=== PATIENT | female | born 1980 | race Caucasian/White ===

== ENCOUNTER 2020-10-19 08:15 | Emergency (ER) | payer OTHER ==
[2020-10-19 08:44] VITALS: TEMP 97; BMI 30.7
[2020-10-19 09:14] LABS: HCG,QUALITATIVE URINE Negative
[2020-10-19 09:34] LABS: EPI CELLS 7 /uL (0-25.1); HYALINE CASTS 1 /uL (0-3.1); URINE APPEARANCE CLOUDY; URINE BACTERIA 122 /uL (0-1359); URINE BILIRUBIN NEGATIVE (NEGATIVE); URINE COLOR YELLOW; URINE GLUCOSE (UA) NEGATIVE (NEGATIVE); URINE KETONE NEGATIVE (NEGATIVE); URINE LEUK ESTERASE 2+ (NEGATIVE); URINE NITRITE NEGATIVE (NEGATIVE); URINE PROTEIN NEGATIVE (NEGATIVE); URINE UROBILINOGEN 0.2 mg/dL (0.2-1.0); URINE WBC 407 /uL (0-25.8)
[2020-10-19 09:35] LABS: URINE RBC 59.3 /uL (0-23.9); YEAST NON SEEN (NEGATIVE)
[2020-10-19 10:06] VITALS: BP 111/66; PULSE 84
== END 2020-10-19 10:05 | disposition home or self-care (01) ==
LOC: JER 08:15
DX: N30.01 Acute cystitis with hematuria (principal)
CPT/HCPCS: 81003; 84703; 87086; 87186; 99284-25

== ENCOUNTER 2020-12-14 23:29 | Emergency (ER) | payer OTHER ==
[2020-12-14 23:41] VITALS: TEMP 98.3; BMI 31.1
[2020-12-15 00:31] LABS: BASO % 0.7 % (0-2.0); EOS % 3.9 % (0-4.5); HEMATOCRIT 40.1 % (32.4-45.2); HEMOGLOBIN 13.2 GM/dL (10.7-15.3); LYMPH % 23.5 % (8-40); MEAN CELL VOLUME 88.1 fl (80-96); MEAN PLT VOLUME 7.5 fl (7.5-11.1); MONO % 5.4 % (3.8-10.2); NEUT % 66.5 % (42.8-82.8); PLATELET COUNT 306 K/MM3 (134-434); RBC 4.55 M/mm3 (3.60-5.2); RDW 13.2 % (11.6-15.6); WHITE BLOOD COUNT 8.4 K/mm3 (4.0-10.0)
[2020-12-15 00:44] LABS: EPI CELLS 17 /uL (0-25.1); HYALINE CASTS 1 /uL (0-3.1); PH,URINE 6.5 (5.0-8.0); URINE APPEARANCE CLOUDY; URINE BACTERIA 935 /uL (0-1359); URINE BILIRUBIN NEGATIVE (NEGATIVE); URINE COLOR ORANGE; URINE GLUCOSE (UA) NEGATIVE (NEGATIVE); URINE KETONE NEGATIVE (NEGATIVE); URINE LEUK ESTERASE NEGATIVE (NEGATIVE); URINE NITRITE NEGATIVE (NEGATIVE); URINE PROTEIN 1+ (NEGATIVE); URINE RBC 1838 /uL (0-23.9); URINE WBC 25 /uL (0-25.8)
[2020-12-15 00:49] LABS: POTASSIUM 4.1 mmol/L (3.5-5.1)
[2020-12-15 00:51] LABS: CALCIUM 8.8 mg/dL (8.5-10.1)
[2020-12-15 00:53] LABS: ALBUMIN 3.6 g/dl (3.4-5.0); BLOOD UREA NITROGEN 12.5 mg/dL (7-18)
[2020-12-15 00:55] LABS: CREATININE 0.9 mg/dL (0.55-1.3)
[2020-12-15 00:56] LABS: BILIRUBIN,TOTAL 0.4 mg/dL (0.2-1); TOT PROT 7.3 g/dl (6.4-8.2)
[2020-12-15 03:27] VITALS: BP 110/73; PULSE 88
== END 2020-12-15 03:27 | disposition home or self-care (01) ==
LOC: JER 23:29
DX: O20.0 Threatened abortion (principal)
CPT/HCPCS: 36415; 80053; 81003; 84702; 85025; 86850; 86900; 86901; 87086; 99284-25

== ENCOUNTER 2021-03-02 12:23 | Emergency (ER) | payer OTHER ==
[2021-03-02 12:34] VITALS: BP 99/63; PULSE 80; TEMP 98.3; BMI 32.1
[2021-03-02 13:30] LABS: EPI CELLS >36 /uL (0-25.1); HCG,QUALITATIVE URINE Negative; HYALINE CASTS 0 /uL (0-3.1); PH,URINE 6.5 (5.0-8.0); URINE APPEARANCE CLEAR; URINE BACTERIA 227 /uL (0-1359); URINE BILIRUBIN NEGATIVE (NEGATIVE); URINE COLOR RED; URINE GLUCOSE (UA) NEGATIVE (NEGATIVE); URINE KETONE NEGATIVE (NEGATIVE); URINE LEUK ESTERASE 1+ (NEGATIVE); URINE NITRITE NEGATIVE (NEGATIVE); URINE PROTEIN TRACE (NEGATIVE); URINE UROBILINOGEN 0.2 mg/dL (0.2-1.0); URINE WBC 85 /uL (0-25.8)
[2021-03-02 14:51] LABS: URINE RBC 262 /uL (0-23.9)
== END 2021-03-02 13:53 | disposition home or self-care (01) ==
LOC: JERFT 12:23
DX: N30.01 Acute cystitis with hematuria (principal)
CPT/HCPCS: 81003; 84703; 87086; 99283-25

== ENCOUNTER 2021-04-02 10:39 | Emergency (ER) | payer OTHER ==
[2021-04-02 10:58] VITALS: BP 100/60; PULSE 89; TEMP 98.1; BMI 27.1
[2021-04-02 12:01] LABS: HCG,QUALITATIVE URINE Negative
[2021-04-02 12:04] LABS: EPI CELLS 3 /uL (0-25.1); HYALINE CASTS 0 /uL (0-3.1); URINE APPEARANCE CLEAR; URINE BACTERIA 119 /uL (0-1359); URINE BILIRUBIN NEGATIVE (NEGATIVE); URINE COLOR YELLOW; URINE GLUCOSE (UA) NEGATIVE (NEGATIVE); URINE KETONE NEGATIVE (NEGATIVE); URINE LEUK ESTERASE 3+ (NEGATIVE); URINE NITRITE NEGATIVE (NEGATIVE); URINE PROTEIN NEGATIVE (NEGATIVE); URINE RBC 62 /uL (0-23.9); URINE UROBILINOGEN 0.2 mg/dL (0.2-1.0); URINE WBC 183 /uL (0-25.8)
== END 2021-04-02 12:16 | disposition home or self-care (01) ==
LOC: JERFT 10:39
DX: N30.01 Acute cystitis with hematuria (principal)
CPT/HCPCS: 81003; 84703; 87086; 87186; 99283-25

== ENCOUNTER 2021-05-17 12:41 | Emergency (ER) | payer OTHER ==
[2021-05-17 12:49] VITALS: BP 100/67; PULSE 70; TEMP 98.2; BMI 30.9
[2021-05-17 15:00] LABS: EPI CELLS 4 /uL (0-25.1); HYALINE CASTS 0 /uL (0-3.1); URINE APPEARANCE CLEAR; URINE BACTERIA 86 /uL (0-1359); URINE BILIRUBIN NEGATIVE (NEGATIVE); URINE COLOR YELLOW; URINE GLUCOSE (UA) NEGATIVE (NEGATIVE); URINE KETONE NEGATIVE (NEGATIVE); URINE LEUK ESTERASE NEGATIVE (NEGATIVE); URINE NITRITE NEGATIVE (NEGATIVE); URINE PROTEIN NEGATIVE (NEGATIVE); URINE RBC 11 /uL (0-23.9); URINE UROBILINOGEN 0.2 mg/dL (0.2-1.0); URINE WBC 5 /uL (0-25.8)
[2021-05-17] MEDS ORDERED: DOXYCYCLINE HYCLATE 100 MG CAPSULE PO ONE ×2 (15:14→15:17)
[2021-05-17] MEDS ORDERED: IBUPROFEN 600 MG TABLET (FP) PO ONE ×2 (15:17→15:19)
== END 2021-05-17 15:24 | disposition home or self-care (01) ==
LOC: JERFT 12:41
DX: N75.8 Other diseases of Bartholin's gland (principal)
CPT/HCPCS: 36415; 81003; 84703; 87491; 87591; 99283-25

== ENCOUNTER 2022-04-23 11:28 | Emergency (ER) | payer OTHER ==
[2022-04-23 12:10] VITALS: BP 96/62; PULSE 84; TEMP 98.1; BMI 34.2
[2022-04-23] MEDS ORDERED: PHENAZOPYRIDINE HCL 100 MG TABLET (FP) ONE (12:51)
[2022-04-23] MEDS ORDERED: PHENAZOPYRIDINE HCL 100 MG TABLET (FP) PO ONE (12:51)
[2022-04-23 13:19] LABS: HCG,QUALITATIVE URINE Negative; URINE APPEARANCE CLEAR; URINE BILIRUBIN NEGATIVE (NEGATIVE); URINE COLOR RED; URINE GLUCOSE (UA) NEGATIVE (NEGATIVE); URINE KETONE NEGATIVE (NEGATIVE); URINE LEUK ESTERASE 2+ (NEGATIVE); URINE NITRITE NEGATIVE (NEGATIVE); URINE PROTEIN 1+ (NEGATIVE); URINE UROBILINOGEN 0.2 mg/dL (0.2-1.0)
[2022-04-23 13:21] LABS: URINE RBC 19.9 /uL (0-23.9)
[2022-04-23 13:22] LABS: EPI CELLS 3.7 /uL (0-25.1); HYALINE CASTS 0.62 /uL (0-3.1); URINE BACTERIA 317.9 /uL (0-1359); URINE WBC 333.4 /uL (0-25.8); YEAST NEGATIVE (NEGATIVE)
== END 2022-04-23 14:09 | disposition home or self-care (01) ==
LOC: JER 11:28
DX: R30.0 Dysuria (principal); N39.0 Urinary tract infection, site not specified
CPT/HCPCS: 81003; 84703; 87086; 87186; 99283-25

== ENCOUNTER 2023-01-01 04:47 | Emergency (ER) | payer OTHER ==
[2023-01-01 05:06] VITALS: BP 102/62; PULSE 80; RESP 18; TEMP 97.7
[2023-01-01 06:15] LABS: EPI CELLS 6 /uL (0-25.1); HCG,QUALITATIVE URINE Negative; HYALINE CASTS 2 /uL (0-3.1); URINE APPEARANCE CLEAR; URINE BACTERIA 419 /uL (0-1359); URINE BILIRUBIN NEGATIVE (NEGATIVE); URINE COLOR YELLOW; URINE GLUCOSE (UA) NEGATIVE (NEGATIVE); URINE KETONE NEGATIVE (NEGATIVE); URINE LEUK ESTERASE 2+ (NEGATIVE); URINE NITRITE NEGATIVE (NEGATIVE); URINE PROTEIN NEGATIVE (NEGATIVE); URINE UROBILINOGEN 0.2 mg/dL (0.2-1.0); URINE WBC 231 /uL (0-25.8)
[2023-01-01] MEDS ORDERED: CEPHALEXIN MONOHYDRATE 500 MG CAPSULE (UD) PO ONE (06:35)
[2023-01-01] MEDS ORDERED: CEPHALEXIN MONOHYDRATE 500 MG CAPSULE (UD) ONE (06:36)
== END 2023-01-01 06:37 | disposition home or self-care (01) ==
LOC: JER 04:47
DX: N30.00 Acute cystitis without hematuria (principal)
CPT/HCPCS: 36415; 81003; 84703; 87086; 87186; 87491; 87591; 99283-25

== ENCOUNTER 2023-09-27 16:08 | Emergency (ER) | payer OTHER ==
[2023-09-27 16:28] VITALS: BP 109/70; PULSE 78; RESP 17; TEMP 98.5; BMI 30.9
[2023-09-27 17:18] LABS: EPI CELLS 3.3 /uL (0-25.1); HYALINE CASTS 0.12 /uL (0-3.1); URINE APPEARANCE CLEAR; URINE BACTERIA 1243.1 /uL (0-1359); URINE BILIRUBIN NEGATIVE (NEGATIVE); URINE COLOR RED; URINE GLUCOSE (UA) NEGATIVE (NEGATIVE); URINE KETONE NEGATIVE (NEGATIVE); URINE LEUK ESTERASE 2+ (NEGATIVE); URINE NITRITE NEGATIVE (NEGATIVE); URINE PROTEIN 1+ (NEGATIVE); URINE RBC 356.3 /uL (0-23.9); URINE UROBILINOGEN 0.2 mg/dL (0.2-1.0); URINE WBC 180.4 /uL (0-25.8)
[2023-09-27 17:23] LABS: HCG,QUALITATIVE URINE Negative
[2023-09-27] MEDS ORDERED: PHENAZOPYRIDINE HCL 100 MG TABLET (FP) PO ONE (18:11)
[2023-09-27] MEDS ORDERED: PHENAZOPYRIDINE HCL 100 MG TABLET (FP) ONE (18:23)
== END 2023-09-27 18:35 | disposition home or self-care (01) ==
LOC: JER 16:08
DX: N30.01 Acute cystitis with hematuria (principal); R30.0 Dysuria; N93.9 Abnormal uterine and vaginal bleeding, unspecified
CPT/HCPCS: 81003; 84703; 87086; 87186; 99283-25

== ENCOUNTER 2024-02-20 09:20 | Emergency (ER) | payer OTHER ==
[2024-02-20 09:25] VITALS: BP 109/79; PULSE 106; RESP 18; TEMP 98.1; BMI 27.4
[2024-02-20] MEDS ORDERED: ACETAMINOPHEN 325 MG TABLET (FP) ONE (10:05)
[2024-02-20] MEDS: ACETAMINOPHEN 325 MG TABLET (FP) PO ONE (10:07)
[2024-02-20 10:27] LABS: EPI CELLS 29 /uL (0-25.1); HYALINE CASTS 0 /uL (0-3.1); PH,URINE 6.5 (5.0-8.0); URINE APPEARANCE CLEAR; URINE BACTERIA 41 /uL (0-1359); URINE BILIRUBIN NEGATIVE (NEGATIVE); URINE COLOR YELLOW; URINE GLUCOSE (UA) TRACE (NEGATIVE); URINE KETONE NEGATIVE (NEGATIVE); URINE LEUK ESTERASE 2+ (NEGATIVE); URINE NITRITE NEGATIVE (NEGATIVE); URINE PROTEIN NEGATIVE (NEGATIVE); URINE RBC 102 /uL (0-23.9); URINE UROBILINOGEN 0.2 mg/dL (0.2-1.0); URINE WBC 206 /uL (0-25.8)
[2024-02-20 10:55] LABS: YEAST NONE SEEN (NEGATIVE)
== END 2024-02-20 11:05 | disposition home or self-care (01) ==
LOC: JER 09:20
DX: R35.0 Frequency of micturition (principal); R30.0 Dysuria; R10.30 Lower abdominal pain, unspecified; N39.0 Urinary tract infection, site not specified
CPT/HCPCS: 81003; 84703; 87086; 99283-25

== ENCOUNTER 2024-06-07 10:59 | Emergency (ER) | payer OTHER ==
[2024-06-07 11:05] VITALS: BP 106/68; PULSE 71; RESP 19; TEMP 97.8; BMI 32.8
[2024-06-07 12:11] LABS: EPI CELLS 16 /uL (0-25.1); HCG,QUALITATIVE URINE Negative; HYALINE CASTS 2 /uL (0-3.1); PH,URINE 6.5 (5.0-8.0); URINE APPEARANCE TURBID; URINE BACTERIA 482 /uL (0-1359); URINE BILIRUBIN NEGATIVE (NEGATIVE); URINE COLOR RED; URINE GLUCOSE (UA) NEGATIVE (NEGATIVE); URINE KETONE NEGATIVE (NEGATIVE); URINE LEUK ESTERASE 2+ (NEGATIVE); URINE NITRITE NEGATIVE (NEGATIVE); URINE PROTEIN 1+ (NEGATIVE); URINE RBC 18168 /uL (0-23.9); URINE UROBILINOGEN 0.2 mg/dL (0.2-1.0); URINE WBC 342 /uL (0-25.8)
[2024-06-07] MEDS ORDERED: CEPHALEXIN MONOHYDRATE 500 MG CAPSULE (UD) ONE (12:13)
[2024-06-07] MEDS ORDERED: IBUPROFEN 600 MG TABLET (FP) PO ONE (12:13)
[2024-06-07] MEDS ORDERED: PHENAZOPYRIDINE HCL 100 MG TABLET (FP) ONE (12:14)
[2024-06-07] MEDS: CEPHALEXIN MONOHYDRATE 500 MG CAPSULE (UD) PO ONE (12:17)
[2024-06-07] MEDS: IBUPROFEN 600 MG TABLET (FP) PO ONE (12:17)
[2024-06-07] MEDS: PHENAZOPYRIDINE HCL 100 MG TABLET (FP) PO ONE (12:18)
[2024-06-07 13:27] LABS: HIV INTERPRETATION NEGATIVE (NEGATIVE)
== END 2024-06-07 12:25 | disposition home or self-care (01) ==
LOC: JER 10:59
DX: N30.01 Acute cystitis with hematuria (principal); R30.0 Dysuria; R31.9 Hematuria, unspecified
CPT/HCPCS: 36415; 81003; 84703; 86803; 87086; 87186; 87389; 99283-25

== ENCOUNTER 2024-08-12 12:51 | Emergency (ER) | payer OTHER ==
[2024-08-12 13:01] VITALS: BP 100/65; PULSE 99; RESP 16; TEMP 98.7; BMI 29.0
[2024-08-12] MEDS: ACETAMINOPHEN 500 MG TABLET (FP) PO ONE (15:24)
[2024-08-12] MEDS ORDERED: ACETAMINOPHEN 500 MG TABLET (FP) ONE (15:24)
[2024-08-12 15:36] LABS: PH,URINE 6.5 (5.0-8.0); URINE APPEARANCE CLEAR; URINE BILIRUBIN NEGATIVE (NEGATIVE); URINE COLOR YELLOW; URINE GLUCOSE (UA) TRACE (NEGATIVE); URINE KETONE NEGATIVE (NEGATIVE); URINE LEUK ESTERASE NEGATIVE (NEGATIVE); URINE NITRITE NEGATIVE (NEGATIVE); URINE PROTEIN NEGATIVE (NEGATIVE); URINE UROBILINOGEN 0.2 mg/dL (0.2-1.0)
[2024-08-12 15:39] LABS: HCG,QUALITATIVE URINE Negative
== END 2024-08-12 15:33 | disposition home or self-care (01) ==
LOC: JER 12:51
DX: N89.8 Other specified noninflammatory disorders of vagina (principal)
CPT/HCPCS: 36415; 81003; 84703; 87070; 87086; 87205; 87491; 87591; 99283-25

== ENCOUNTER 2024-10-19 06:34 | Emergency (ER) | payer OTHER ==
[2024-10-19 06:51] VITALS: BP 107/64; PULSE 72; RESP 16; TEMP 97.7; BMI 29.0
[2024-10-19] MEDS ORDERED: ACETAMINOPHEN 500 MG TABLET (FP) ONE (08:28)
[2024-10-19 08:29] LABS: EPI CELLS 4 /uL (0-25.1); HYALINE CASTS 0 /uL (0-3.1); URINE APPEARANCE CLOUDY; URINE BACTERIA 249 /uL (0-1359); URINE BILIRUBIN NEGATIVE (NEGATIVE); URINE COLOR YELLOW; URINE GLUCOSE (UA) NEGATIVE (NEGATIVE); URINE KETONE NEGATIVE (NEGATIVE); URINE LEUK ESTERASE 3+ (NEGATIVE); URINE NITRITE NEGATIVE (NEGATIVE); URINE PROTEIN 1+ (NEGATIVE); URINE RBC 2397 /uL (0-23.9); URINE UROBILINOGEN 0.2 mg/dL (0.2-1.0); URINE WBC 3265 /uL (0-25.8)
[2024-10-19] MEDS: ACETAMINOPHEN 500 MG TABLET (FP) PO ONE (08:32)
[2024-10-19 09:18] LABS: HCG,QUALITATIVE URINE Negative
== END 2024-10-19 10:16 | disposition home or self-care (01) ==
LOC: JER 06:34
DX: N39.0 Urinary tract infection, site not specified (principal); R10.30 Lower abdominal pain, unspecified; R30.0 Dysuria; R30.9 Painful micturition, unspecified
CPT/HCPCS: 81003; 84703; 87086; 87186; 99283-25